=== PATIENT | male | born 1960 ===

== ENCOUNTER 2019-11-05 09:01 | Inpatient (IN) | payer MEDICAID, MEDICARE, OTHER ==
[~2019-11-05] VITALS: Ht 167.6 cm; Wt 138.8 kg
[2019-11-05] MEDS ORDERED: SODIUM CHLORIDE FLUSH 10ML SYR IVF ONE (09:30)
[2019-11-05] MEDS ORDERED: PLEASE ENTER HEIGHT AND WEIGHT MC SCH (09:30)
[2019-11-05 09:39] LABS: BASOPHILS # (AUTO) 0.03 x10^3/uL (0-0.1); BASOPHILS % (AUTO) 0 % (0-1); EOSINOPHILS # (AUTO) 0.21 x10^3/uL (0-0.4); EOSINOPHILS % (AUTO) 3 % (1-7); LYMPHOCYTES # (AUTO) 1.51 x10^3/uL (1-3.4); LYMPHOCYTES % (AUTO) 20 % (22-44); MD NO; MEAN CORPUSCULAR HEMOGLOBIN 30.9 pg (27.5-34.5); MEAN CORPUSCULAR HGB CONC 33.7 g/dL (33.2-36.2); MEAN CORPUSCULAR VOLUME 91.6 fL (81-97); MEAN PLATELET VOLUME 9.4 fL (7.4-10.4); MONOCYTES # (AUTO) 0.54 x10^3/uL (0.2-0.8); MONOCYTES % (AUTO) 7 % (2-9); NEUTROPHILS # (AUTO) 5.42 x10^3/uL (1.8-6.8); NEUTROPHILS % (AUTO) 70 % (42-75); PLATELET COUNT 197 x10^3/uL (130-400); RED BLOOD COUNT 5.04 x10^6/uL (4.38-5.82); RED CELL DISTRIBUTION WIDTH 15.1 % (9.4-14.8)
[2019-11-05] MEDS: SODIUM CHLORIDE 0.9% 1,000 ML IV SCH ×4 (09:45→23:00)
[2019-11-05] MEDS ORDERED: UMEC62.5 INH (09:48)
[2019-11-05] MEDS ORDERED: LISI-167 PO (09:48)
[2019-11-05] MEDS ORDERED: SALM50DI INH (09:48)
[2019-11-05] MEDS ORDERED: PIOG30TA4 PO (09:48)
[2019-11-05] MEDS ORDERED: INSU100V8 SQ ×2 (09:48)
[2019-11-05] MEDS ORDERED: ALBU18HF INH (09:48)
[2019-11-05] MEDS ORDERED: GABA300C10 PO (09:48)
[2019-11-05 09:52] LABS: ALANINE AMINOTRANSFERASE 50 U/L (12-78); ALBUMIN 3.2 g/dL (3.4-5.0); ANION GAP 8 mmol/L (5-15); CALCIUM 8.4 mg/dL (8.5-10.1); CHLORIDE 107 mmol/L (98-107); CREATININE 1.27 mg/dL (0.7-1.3)
[2019-11-05 09:53] LABS: INTERNATIONAL NORMALIZED RATIO 1.06 (0.93-1.1); PROTHROMBIN TIME 11.1 Seconds (9.6-11.5)
[2019-11-05 09:56] LABS: ALKALINE PHOSPHATASE 106 U/L (45-117); BILIRUBIN,TOTAL 0.8 mg/dL (0.2-1.0); TOTAL PROTEIN 7.1 g/dL (6.4-8.2); TROPONIN I < 0.015 ng/mL (0.000-0.045)
--- NOTE | 2019-11-05 10:23 | NUR ---
waiver analyst to the bs pt to go to [facility] lab[facility] for a pacer
--- NOTE | 2019-11-05 11:01 | NUR ---
US TO THE BS FOR ECHO
--- NOTE | 2019-11-05 11:05 | NUR ---
WAITING ON HOME AIDE FOR PACER PLACEMENT
--- NOTE | 2019-11-05 11:25 | NUR ---
UNR TO THE BS PT REMAINS SKIN WARM AND DRY AO4
[2019-11-05] MEDS ORDERED: TRAZODONE 50MG TABLET PO PRN (12:00)
[2019-11-05] MEDS ORDERED: POLYETHYLENE GLYCOL 17 GM PACKET PO PRN (12:00)
[2019-11-05] MEDS ORDERED: CAPTOPRIL 25 MG TABLET PO PRN (12:00)
[2019-11-05] MEDS ORDERED: GLUCAGON 1 MG IM PRN (12:00)
[2019-11-05] MEDS ORDERED: DEXTROSE 4 GM TAB.CHEW PO PRN (12:00)
[2019-11-05] MEDS ORDERED: DEXTROSE 50%, 50ML SYRINGE IVPush PRN (12:00)
[2019-11-05] MEDS ORDERED: DOCUSATE 100 MG CAPSULE PO PRN (12:00)
[2019-11-05] MEDS ORDERED: BISACODYL 10 MG SUPP PR PRN (12:00)
--- NOTE | 2019-11-05 12:10 | NUR ---
Assumed care from Julio C TERRAZAS.
--- NOTE | 2019-11-05 13:00 | NUR ---
Spoke with [facility] Nick Pts bp was dropping and ED MD requesing consult. Per [place] to start dopamine. Pts bp did rebound back up. Pt being started on pressors again will be held off. [facility] to be informed. Pt restign and reports just feeling tired. ED MD aggreable to not starting pressors as bp has gone up.
[2019-11-05] MEDS ORDERED: FENTANYL PF 100 MCG/2ML ONE (13:48)
[2019-11-05] MEDS ORDERED: MIDAZOLAM 1 MG/ML, 5ML ONE (13:48)
[2019-11-05] MEDS ORDERED: CEFAZOLIN PMX 1GM/50ML 50 ML ONE ×2 (13:48→15:32)
[2019-11-05] MEDS ORDERED: CEFAZOLIN 1,000 MG ONE ×2 (13:49→15:32)
[2019-11-05] MEDS ORDERED: LIDOCAINE 2%, 20ML ONE ×3 (13:49→16:13)
--- NOTE | 2019-11-05 13:54 | NUR ---
report to [place]ña rn.
[2019-11-05] MEDS: INSULIN LISPRO 100 UNITS/ML, PEN SQ-INSULIN SCH ×2 (16:00→21:00)
[2019-11-05] MEDS ORDERED: HOLD MEDICATION MC PRN (17:00)
[2019-11-05 18:43] VITALS: BP 113/55
[2019-11-05] MEDS: INSULIN GLARGINE 100 UNITS/ML, PEN SQ-INSULIN SCH (21:17)
[2019-11-05] MEDS: SODIUM CHLORIDE FLUSH 10ML SYR IVF SCH (21:17)
[2019-11-05] MEDS: HYDROcodone/APAP 5/325 TABLET PO PRN (21:20)
[2019-11-05] MEDS: CEFAZOLIN PMX 1GM/50ML 50 ML IVPB SCH (21:31)
[2019-11-05 21:38] LABS: MICROSCOPIC NOT IND
[2019-11-05 21:40] LABS: CULTURE INDICATED? NO
[2019-11-06 01:23] VITALS: BP 103/49
[2019-11-06] MEDS: SODIUM CHLORIDE 0.9% 1,000 ML IV SCH ×4 (02:11→16:30)
[2019-11-06] MEDS: HYDROcodone/APAP 5/325 TABLET PO PRN ×2 (04:11→22:00)
[2019-11-06] MEDS: CEFAZOLIN PMX 1GM/50ML 50 ML IVPB SCH ×3 (06:27→22:14)
[2019-11-06] MEDS: INSULIN LISPRO 100 UNITS/ML, PEN SQ-INSULIN SCH ×4 (07:00→21:00)
[2019-11-06] MEDS: PIOGLITAZONE 15 MG TABLET PO SCH (08:02)
[2019-11-06] MEDS: GABAPENTIN 300 MG CAPSULE PO SCH ×3 (08:02→22:15)
[2019-11-06] MEDS: LISINOPRIL 10 MG TABLET PO SCH (08:02)
[2019-11-06] MEDS: SODIUM CHLORIDE FLUSH 10ML SYR IVF SCH ×2 (08:03→22:16)
[2019-11-06] MEDS: INSULIN GLARGINE 100 UNITS/ML, PEN SQ-INSULIN SCH ×2 (08:25→21:00)
[2019-11-06 12:55] VITALS: BP 125/70
[2019-11-06] MEDS ORDERED: ALBUTEROL SULFATE 2.5 MG/3 ML NPPB SCH (15:00)
[2019-11-06] MEDS: ACETAMINOPHEN 325 MG TABLET PO PRN (15:54)
[2019-11-06] MEDS ORDERED: BUDESONIDE 0.5 MG/2 ML INHA NPPB SCH (21:00)
[2019-11-06] MEDS ORDERED: ALBUTEROL/IPRATROPIUM 2.5MG/0.5MG, 3 ML HHN SCH (21:30)
[2019-11-06 22:00] VITALS: BP_SYST 135; BP_SYST 65; BP_DIAS 70
[2019-11-06] MEDS ORDERED: ALBU18HF INH (22:01)
[2019-11-07 01:42] VITALS: BP 129/73
[2019-11-07] MEDS: SODIUM CHLORIDE 0.9% 1,000 ML IV SCH (02:10)
[2019-11-07] MEDS: HYDROcodone/APAP 5/325 TABLET PO PRN (02:16)
[2019-11-07] MEDS: CEFAZOLIN PMX 1GM/50ML 50 ML IVPB SCH (06:02)
[2019-11-07] MEDS: ACETAMINOPHEN 325 MG TABLET PO PRN ×2 (06:27→14:33)
[2019-11-07] MEDS: INSULIN LISPRO 100 UNITS/ML, PEN SQ-INSULIN SCH ×3 (07:00→16:00)
[2019-11-07 07:41] VITALS: BP 107/66
[2019-11-07] MEDS: INSULIN GLARGINE 100 UNITS/ML, PEN SQ-INSULIN SCH (08:55)
[2019-11-07] MEDS: GABAPENTIN 300 MG CAPSULE PO SCH ×2 (08:59→17:00)
[2019-11-07] MEDS: SODIUM CHLORIDE FLUSH 10ML SYR IVF SCH (08:59)
[2019-11-07] MEDS: PIOGLITAZONE 15 MG TABLET PO SCH (09:00)
[2019-11-07] MEDS: LISINOPRIL 10 MG TABLET PO SCH (09:00)
[2019-11-07 12:47] VITALS: BP 114/68
[2019-11-07] MEDS ORDERED: VENTOLIN INH SCH (21:00)
== END 2019-11-07 19:43 | disposition home or self-care (01) | DRG 242 ==
LOC: ED 10:37 → EDIP 10:39 → 5SO 17:25
PROVIDERS: ADMIT Internal Medicine; ATTEND Internal Medicine
PROC: 02HK3JZ Insertion of Pacemaker Lead into Right Ventricle, Percutaneous Approach (ICD-10-PCS; principal; 2019-11-05)
PROC: 0JH606Z Insertion of Pacemaker, Dual Chamber into Chest Subcutaneous Tissue and Fascia, Open Approach (ICD-10-PCS; 2019-11-05)
PROC: 02H63JZ Insertion of Pacemaker Lead into Right Atrium, Percutaneous Approach (ICD-10-PCS; 2019-11-05)
DX: I44.2 Atrioventricular block, complete (principal); J96.20 Acute and chronic respiratory failure, unspecified whether with hypoxia or hypercapnia; E87.2 Acidosis; Z68.42 Body mass index [BMI] 45.0-49.9, adult; E11.65 Type 2 diabetes mellitus with hyperglycemia; E11.40 Type 2 diabetes mellitus with diabetic neuropathy, unspecified; E66.01 Morbid (severe) obesity due to excess calories; F17.210 Nicotine dependence, cigarettes, uncomplicated; G47.33 Obstructive sleep apnea (adult) (pediatric); I10 Essential (primary) hypertension; J44.9 Chronic obstructive pulmonary disease, unspecified; Z79.4 Long term (current) use of insulin
CPT/HCPCS: 33208; 36415; 71045; 80053; 81003; 82962; 83605; 83735; 83880; 84443; 84484; 85025; 85610; 93005; 99156; 99157; 99291; C1779; C1785; C1892; C8929; G0378; J0690; J2250; J3010; Q9957; J1815; J7030

== ENCOUNTER 2021-08-10 10:06 | Emergency (ER) | payer OTHER ==
[~2021-08-10] VITALS: Ht 167.6 cm; Wt 132.9 kg
[~2021-08-10 10:06] MED LIST: ALBU18HF INH; GABA300C10 PO; INSU100V8 SQ; LISI-167 PO; PIOG30TA68 PO; SALM50DI2 INH; UMEC62.5 INH
--- NOTE | 2021-08-10 12:14 | NUR ---
PT HERE FOR ASTHMA MED REFILL AND ALSO WANTS TO GET HELP GETTING A PCP
--- NOTE | 2021-08-10 13:35 | NUR ---
COVID VACCINE REQUESTED FROM PHARMACY.
--- NOTE | 2021-08-10 14:00 | NUR ---
TASK RN NOTE: DISCUSSION WITH PHARMACIST REGARDING COVID VACCINE, NOTIFICATION GIVEN TO ER PROVIDER OF LIMITATIONS OF VACCINE IN ER/HOSPITAL AT THIS TIME. PT TO BE EDUCATED ON VARIOUS PLACED TO RECEIVE VACCINE IN COMMUNITY.
[2021-08-10 14:14] VITALS: BP 139/67
--- NOTE | 2021-08-10 14:21 | NUR ---
Patient/Caregiver given discharge instructions and they have confirmed that they understand the instructions. Patient ambulatory with steady gait.
== END 2021-08-10 14:23 | disposition home or self-care (01) ==
LOC: ED 14:20
DX: J44.9 Chronic obstructive pulmonary disease, unspecified (principal); Z76.0 Encounter for issue of repeat prescription; E11.9 Type 2 diabetes mellitus without complications; F17.210 Nicotine dependence, cigarettes, uncomplicated
CPT/HCPCS: 99406